=== PATIENT | female | born 1985 | race Caucasian/White ===

== ENCOUNTER 2016-12-14 13:50 | Emergency (ER) | payer SELFPAY ==
[2016-12-14 13:55] VITALS: BP 142/96; PULSE 92; TEMP 98.3; BMI 38.7
[2016-12-14] MEDS ORDERED: SODIUM CHLORIDE 0.9% 1000 ML INFUS.BAG IV ONE (14:31)
--- NOTE | 2016-12-14 14:41 | PDOC ---
History of Present Illness - General Chief Complaint: Nausea/Vomiting Stated Complaint: Nausea/Vomiting Time Seen by Provider: 12/14/16 14:14 History Source: Patient Exam Limitations: No Limitations - History of Present Illness Initial Comments: 12/14/16 14:36 The patient is a 31F with no PMH who presents with a headache and nausea. The patient states that she was woken up out of sleep at 6am with a headache that is unilateral, R frontal and temporal in location, which radiates to the top of her head and her neck. The pain is throbbing and is a 8/10. This has never happened before. She vomited 6 times since 6am. She has no trauma, no sick contacts and no recent travel. She has complaining of neck pain and photophobia. All: none Soc: none LMP: on it now - day 2 Past History - Past Medical History Allergies/Adverse Reactions: Allergies Allergy/AdvReac Type Severity Reaction Status Date / Time No Known Allergies Allergy Verified 12/14/16 13:55 Home Medications: Ambulatory Orders NK [No Known Home Medication] 12/14/16 Other medical history: NONE - Surgical History Cholecystectomy: Yes - Psycho/Social/Smoking Cessation Hx Anxiety: No Suicidal Ideation: No Smoking History: Never smoked Hx Alcohol Use: No Drug/Substance Use Hx: No Substance Use Type: None Review of Systems - Review of Systems Able to Perform ROS?: Yes Is the patient limited Icelandic proficient: No Constitutional: Yes: Weakness. No: Chills, Fever HEENTM: No: Blurred Vision, Double Vision, Nose Congestion, Throat Pain, Throat Swelling, Mouth Pain Respiratory: No: Cough, Shortness of Breath Cardiac (ROS): Yes: Lightheadedness ("room spinning dizziness"). No: Chest Pain , Palpitations ABD/GI: Yes: Nausea, Vomiting. No: Constipated, Diarrhea, Other (abd pain) : No: Dysuria, Discharge Neurological: Yes: Headache. No: Numbness, Tingling, Weakness *Physical Exam - Vital Signs Last Vital Signs Temp Pulse Resp BP Pulse Ox 98.3 F 92 H 20 142/96 99 12/14/16 13:52 12/14/16 13:52 12/14/16 13:52 12/14/16 13:52 12/14/16 13:52 - Physical Exam General Appearance: Yes: Nourished. No: Mild Distress HEENT: positive: Normal Voice, Hearing Grossly Normal. negative: TM Bulging, TM Dull, TM Erythema Neck: positive: Tender lateral, Tender midline Respiratory/Chest: positive: Lungs Clear, Normal Breath Sounds. negative: Chest Tender, Respiratory Distress, Accessory Muscle Use, Rapid RR, Crackles, Rales, Rhonchi, Stridor, Wheezing, Hyperresonant, Dullness Cardiovascular: positive: Regular Rhythm, Regular Rate, S1, S2. negative: Diastolic Murmur, Systolic Murmur Gastrointestinal/Abdominal: positive: Normal Bowel Sounds, Flat, Soft, Tenderness (to deep palpation in suprapubic region). negative: Tender Extremity: positive: Normal Inspection, Normal Range of Motion. negative: Coldness, Swelling, Calf Tenderness Integumentary: positive: Dry, Warm. negative: Cold, Clammy, Swelling Neurologic: positive: tariff expert II-XII NML intact, Fully Oriented, Alert, Normal Mood/ Affect, Motor Strength 5/5, Respond to painful stimul, Responsive. negative: Abnormal Cranial NS, EOM Palsy, Facial Droop, Numbness, Sensory Deficit, Finger to Nose, Confused, Disoriented, Depressed Affect ED Treatment Course - LABORATORY CBC & Chemistry Diagram: 12/14/16 14:55 12/14/16 14:55 Medical Decision Making - Medical Decision Making 12/14/16 14:42 The patient is a 31F with no PMH who presents with a headache and nausea since 6am. She has vomited and has a unilateral headache. I will order basic labs to assess the patient and treat her pain with IV tylenol and motrin. I will reassess the patient after her results return. 12/14/16 15:53 Patient states she's feeling better. She states that she gets this every time she gets her period. I will make a referral to neurology and d/c. *DC/Admit/Observation/Transfer Diagnosis at time of Disposition: Migraine headache Qualifiers: Migraine type: menstrual Status migrainosus presence: without status migrainosus Intractability: not intractable Qualified Code(s): G43.829 - Menstrual migraine, not intractable, without status migrainosus - Discharge Dispostion Disposition: HOME Condition at time of disposition: Improved Admit: No - Referrals Referrals: Tushar Vazquez MD [Staff Physician] - - Patient Instructions Printed Discharge Instructions: Migraine Headaches (Alternative Therapy), Migraine -- Adult, DI for Migraine Additional Instructions: Please return to the ER if symptoms persist, worsen, or if new symptoms arise. Please follow up with the neurologist, Dr. Vazquez, for your headaches. - Attestations Physician Attestion: 12/14/16 15:55 I, Dr. César Flor, attest that this document has been prepared under my direction and personally reviewed by me in its entirety. I further attest, that it accurately reflects all work, treatment, procedures and medical decision -making performed by me.
[2016-12-14] MEDS ORDERED: METOCLOPRAMIDE HCL INJECTION 10 MG/2 ML VIAL IVPB ONE (14:45)
[2016-12-14] MEDS ORDERED: ACETAMINOPHEN 1000 MG/100 ML VIAL (NON FORMULARY) IVPB ONE (14:45)
[2016-12-14 15:01] LABS: BASOPHIL 0.3 % (0-2.0); EOSINOPHIL 0.8 % (0-4.5); MCHC 34.6 g/dl (32.0-36.0); MEAN CELL VOLUME 86.7 fl (80-96); NEUTROPHILS 55.6 % (42.8-82.8); PLATELET COUNT 172 K/MM3 (134-434); RDW 14.7 % (11.6-15.6)
[2016-12-14] MEDS ORDERED: ACETAMINOPHEN INJECTION 100 ML IVPB ONE (15:08)
[2016-12-14] MEDS ORDERED: METOCLOPRAMIDE HCL INJECTION 10 MG/2 ML VIAL ONE (15:08)
[2016-12-14 15:17] LABS: ALBUMIN 3.4 g/dl (3.4-5.0); ANION GAP 9 (8-16); BILIRUBIN,TOTAL 0.4 mg/dL (0.2-1.0); CALCIUM 8.8 mg/dL (8.5-10.1); CO2 23 mmol/L (21-32); CREATININE 0.6 mg/dL (0.55-1.02); GLUCOSE,RANDOM 95 mg/dL (74-106); SGOT/AST 17 U/L (15-37); SGPT/ALT 22 U/L (12-78); TOT PROT 7.4 g/dl (6.4-8.2)
[2016-12-14 15:18] LABS: ALK PHOS 68 U/L (45-117)
[2016-12-14 15:37] LABS: URINE APPEARANCE TURBID; URINE BILIRUBIN NEGATIVE (NEGATIVE); URINE BLOOD 3+ (NEGATIVE); URINE COLOR RED; URINE GLUCOSE (UA) 1+ (NEGATIVE); URINE KETONE NEGATIVE (NEGATIVE); URINE LEUK ESTERASE NEGATIVE (NEGATIVE); URINE NITRITE NEGATIVE (NEGATIVE); URINE UROBILINOGEN NEGATIVE mg/dL (0.2-1.0)
[2016-12-14 15:41] LABS: URINE PROTEIN 2+ (NEGATIVE)
[2016-12-14 15:55] LABS: URINE RBC 4297 /hpf (0-3)
--- NOTE | 2016-12-14 16:09 | PDOC ---
Attending Attestation - Resident Resident Name: César Flor - ED Attending Attestation I have performed the following: I have examined & evaluated the patient, The case was reviewed & discussed with the resident, I agree w/resident's findings & plan, Exceptions are as noted - HPI HPI: 12/14/16 15:55 31yo F hx headaches (never worked up) p/w R sided headache that she woke up with this morning (did not wake her up). She reports the headache is throbbing, 7/10, located in the R restorationism. Pain radiates to the top of her head. Headache is a/w nausea and 6 episodes of NBNB emesis/spitting. +photophobia. She has had similar headaches in the past, especially right before or during her period. She currently has her period. She has not tried any treatments and has never seen a neurologist for her headaches. Denies any focal weakness or numbness, blurry vision. She reports the headache was not worse at onset but has gradually gotten worse since this morning. Denies fevers, chills, chest pain, shortness of breath, abdominal pain, lower extremity edema, dysuria, rashes, stiff neck. - Physicial Exam PE: 12/14/16 16:09 GENERAL: Awake, alert, and fully oriented, in no acute distress HEAD: No signs of trauma, no ttp to T restorationism EYES: PERRLA, EOMI, sclera anicteric, conjunctiva clear, 20/20 vision OU ENT: Auricles normal inspection, hearing grossly normal, nares patent, oropharynx clear without exudates. Moist mucosa NECK: Normal ROM, supple, no lymphadenopathy, JVD, or masses LUNGS: Breath sounds equal, clear to auscultation bilaterally. No wheezes, and no crackles HEART: Regular rate and rhythm, normal S1 and S2, no murmurs, rubs or gallops ABDOMEN: Soft, nontender, normoactive bowel sounds. No guarding, no rebound. No masses EXTREMITIES: Normal range of motion, no edema. No clubbing or cyanosis. No cords, erythema, or tenderness NEUROLOGICAL: Normal speech, cranial nerves intact, negative pronator drift, 5/ 5 strength in all 4 extremities, normal sensation to light touch in all 4 extremities, normal cerebellar exam, normal gait, normal reflexes and tone SKIN: Warm, Dry, normal turgor, no rashes or lesions noted. - Medical Decision Making 12/14/16 16:10 31-year-old female history of headaches presents with gradual onset right sided throbbing headache that she woke up with this morning. Exam within normal limits including full neurologic exam. Likely menstrual migraines versus general migraines. Tension headache also on differential, however distribution of headache is more consistent with migraine headache. I am not concerned for mass occupying lesion or SAH as headache has improved with medications and pt is neurologically intact. Also, headache was not worst at onset. I evaluated patient after IV Reglan and fluids and Tylenol and she reports her headache has resolved and requests to go home. I advised her to follow-up with a neurologist for workup of her headaches. -DC with number for neuro clinic I discussed the physical exam findings and final diagnoses with the patient in her primary language (Yoruba). I answered all of the patient's questions. The patient was satisfied with the care received and felt comfortable with the discharge plan and treatment plan. The patient will call their primary care physician within 24 hours to arrange follow-up and will return to the Emergency Department with any new, persistent or worsening symptoms.
== END 2016-12-14 15:58 | disposition home or self-care (01) ==
LOC: JER 13:50
PROC: 3E033NZ Introduction of Analgesics, Hypnotics, Sedatives into Peripheral Vein, Percutaneous Approach (ICD-10-PCS; principal; 2016-12-14)
PROC: 3E033GC Introduction of Other Therapeutic Substance into Peripheral Vein, Percutaneous Approach (ICD-10-PCS; 2016-12-14)
DX: G43.829 Menstrual migraine, not intractable, without status migrainosus (principal)
CPT/HCPCS: 36415; 80053; 81003; 81015; 84702; 85025; 99283-25

== ENCOUNTER 2018-05-18 16:34 | Emergency (ER) | payer OTHER ==
--- NOTE | 2018-05-18 16:39 | PDOC ---
Rapid Medical Evaluation Chief Complaint: Rash Time Seen by Provider: 05/18/18 16:38 Medical Evaluation: Allergies Allergy/AdvReac Type Severity Reaction Status Date / Time No Known Allergies Allergy Verified 05/18/18 16:38 05/18/18 16:39 I have performed a brief in-person evaluation of this patient. The patient presents with a chief complaint of:pruritic rash to hands/face Pertinent physical exam findings:Hives I have ordered the following:nothing The patient will proceed to the ED for further evaluation. Discharge Disposition - Diagnosis Rash and nonspecific skin eruption - Referrals - Patient Instructions - Post Discharge Activity
[2018-05-18 16:46] VITALS: BP 144/86; PULSE 89; TEMP 98.3; BMI 27.4
[2018-05-18] MEDS ORDERED: DEXAMETHASONE LIQUID 0.5 MG/5 ML 240 ML BULK BOTTLE PO ONE (16:57)
[2018-05-18] MEDS ORDERED: DEXAMETHASONE SOD PHOSPHATE 10 MG/1 ML VIAL ONE (16:59)
--- NOTE | 2018-05-18 17:02 | PDOC ---
History of Present Illness - General Chief Complaint: Rash Stated Complaint: RASH Time Seen by Provider: 05/18/18 16:38 - History of Present Illness Initial Comments: 05/18/18 17:00 33-year-old female without comorbidities presents for evaluation of rash times one day no systemic symptoms Past History - Past Medical History Allergies/Adverse Reactions: Allergies Allergy/AdvReac Type Severity Reaction Status Date / Time No Known Allergies Allergy Verified 05/18/18 16:38 Home Medications: Ambulatory Orders NK [No Known Home Medication] 12/14/16 COPD: No - Surgical History Cholecystectomy: Yes - Suicide/Smoking/Psychosocial Hx Smoking History: Never smoked Hx Alcohol Use: No Drug/Substance Use Hx: No Substance Use Type: None Review of Systems - Review of Systems Constitutional: No: Fever Integumentary: Yes: Pruritus, Rash *Physical Exam - Vital Signs Last Vital Signs Temp Pulse Resp BP Pulse Ox 98.3 F 89 18 144/86 100 05/18/18 16:38 05/18/18 16:38 05/18/18 16:38 05/18/18 16:38 05/18/18 16:38 - Physical Exam Comments: 05/18/18 17:00 HEAD: NC/AT EYES: Conjuntiva clear Ears: Canals and TM's normal NOSE: No d/c THROAT: Moist mucous membrances, oral pharanx clear, uvula midline NECK: Supple without adenopathy CARDIAC: S1 S2 LUNGS: CTA Full and Equal breath sounds ABDOMEN: Soft NT ND MS: Full ROM in all joints without edema NEUROLOGIC: No gross sensory or motor deficits, NVID SKIN: Normal color and temperature there is a raised wheals on the lateral aspect of the right and left hands as well as left ankle Moderate Sedation - Procedure Monitoring Vital Signs: Procedure Monitoring Vital Signs Temperature 98.3 F 05/18/18 16:38 Pulse Rate 89 05/18/18 16:38 Respiratory Rate 18 05/18/18 16:38 Blood Pressure 144/86 05/18/18 16:38 O2 Sat by Pulse Oximetry (%) 100 05/18/18 16:38 *DC/Admit/Observation/Transfer Diagnosis at time of Disposition: Rash and nonspecific skin eruption, Allergic reaction - Discharge Dispostion Disposition: HOME Condition at time of disposition: Stable Decision to Admit order: No - Referrals Referrals: Joya Soto [Staff Physician] - Corbin Soto MD [Staff Physician] - - Patient Instructions Printed Discharge Instructions: Diaper Rash Additional Instructions: Return to the emergency room should symptoms worsen or go unresolved. He may take Benadryl as directed for itching. Follow-up with primary care physician once 2 days for further evaluation and treatment options. - Post Discharge Activity
== END 2018-05-18 17:06 | disposition home or self-care (01) ==
LOC: JERFT 16:34
DX: T78.40XA Allergy, unspecified, initial encounter (principal); X58.XXXA Exposure to other specified factors, initial encounter
CPT/HCPCS: 99281-25

== ENCOUNTER 2019-03-25 11:54 | Emergency (ER) | payer OTHER ==
[2019-03-25 12:00] VITALS: BP 132/84; PULSE 87; TEMP 98; BMI 35.4
[2019-03-25] MEDS ORDERED: ONDANSETRON 4 MG/2 ML VIAL IVPUSH ONE (12:44)
[2019-03-25] MEDS ORDERED: ACETAMINOPHEN 1000 MG/100 ML VIAL (NON FORMULARY) IVPB ONE (12:44)
[2019-03-25] MEDS ORDERED: FAMOTIDINE 20 MG/50 ML IVPB 20 MG/50 ML MG IVPB ONE ×2 (12:44→12:48)
[2019-03-25] MEDS ORDERED: SODIUM CHLORIDE 1,000 ML IV STA (12:44)
[2019-03-25] MEDS ORDERED: ONDANSETRON 4 MG/2 ML VIAL ONE (12:48)
[2019-03-25] MEDS ORDERED: ACETAMINOPHEN INJECTION 100 ML IVPB ONE (12:48)
[2019-03-25 13:21] LABS: BASO % 0.8 % (0-2.0); EOS % 1.6 % (0-4.5); HEMOGLOBIN 11.8 GM/dL (10.7-15.3); LYMPH % 43.5 % (8-40); MCH 27.3 pg (25.7-33.7); MCHC 33.8 g/dl (32.0-36.0); MEAN CELL VOLUME 80.9 fl (80-96); MEAN PLT VOLUME 8.2 fl (7.5-11.1); MONO % 9.4 % (3.8-10.2); NEUT % 44.7 % (42.8-82.8); PLATELET COUNT 227 K/MM3 (134-434); RBC 4.33 M/mm3 (3.60-5.2); RDW 15.3 % (11.6-15.6); WHITE BLOOD COUNT 3.7 K/mm3 (4.0-10.0)
--- NOTE | 2019-03-25 13:31 | PDOC ---
Attending Attestation - Resident Resident Name: Jeff Ho - ED Attending Attestation I have performed the following: I have examined & evaluated the patient, The case was reviewed & discussed with the resident, I agree w/resident's findings & plan - HPI HPI: 03/25/19 13:32 33y/o F h/o lap rené p/w 3d epigastric pain with nausea. Pt reports constant epigastric pain, localized without heartburn or melena. no f/c, no change with meals. no known history of gastritis/PUD, never had EGD. nbnb emesis today, nothing prior. uses nsaids for menses and WELLS, not weekly. denies etoh use. - Physicial Exam PE: 03/25/19 13:36 vss, pending alert, nad, ambulating comfortably perrl, eomi. no jaundice/pallor op clear, mmm s1s2 rrr, ctab soft/nd. epigastric ttp without guarding/rebound. no RUQ ttp, no cvat. no rash, no edema - Medical Decision Making 03/25/19 13:37 33y/o F with localized epigastric pain for 3d and benign but localized exam, most consistent with dyspepsia/gastritis without bleeding. h/o lap rené. vss. labs trial of antacid no indication for emergent imaging reassess and dispo with GI cocktail and GI f/u
--- NOTE | 2019-03-25 13:46 | PDOC ---
History of Present Illness - General Chief Complaint: Pain Stated Complaint: ABD PAIN/VOMITING/DIZZINESS Time Seen by Provider: 03/25/19 12:34 - History of Present Illness Initial Comments: 03/25/19 14:12 33f with pmh of gallbladder "laser surgery" presents with 3 days of nonradiating epigastric pain, with two episodes of vomiting today, worsening in intensity. Pain is worse with food, 5/10. Denies heartburn, fever, chills, nausea, diarrhea or constipation. No dysuria. No one else sick at home. Past History - Past Medical History Allergies/Adverse Reactions: Allergies Allergy/AdvReac Type Severity Reaction Status Date / Time No Known Allergies Allergy Verified 03/25/19 12:00 Home Medications: Ambulatory Orders NK [No Known Home Medication] 12/14/16 COPD: No - Surgical History Cholecystectomy: Yes - Psycho Social/Smoking Cessation Hx Smoking History: Never smoked Hx Alcohol Use: No Drug/Substance Use Hx: No Substance Use Type: None Review of Systems - Review of Systems Able to Perform ROS?: Yes Is the patient limited Sinhala proficient: No Constitutional: No: Symptoms Reported HEENTM: No: Symptoms Reported Respiratory: No: Symptoms reported Cardiac (ROS): No: Symptoms Reported ABD/GI: Yes: See HPI : No: Symptoms Reported Musculoskeletal: No: Symptoms Reported All Other Systems: Reviewed and Negative *Physical Exam - Vital Signs Last Vital Signs Temp Pulse Resp BP Pulse Ox 98 F 87 18 132/84 99 03/25/19 11:57 03/25/19 11:57 03/25/19 11:57 03/25/19 11:57 03/25/19 11:57 - Physical Exam General Appearance: Yes: Nourished, Appropriately Dressed. No: Apparent Distress HEENT: positive: EOMI, MANOLO, Normal ENT Inspection Respiratory/Chest: positive: Lungs Clear, Normal Breath Sounds. negative: Chest Tender, Respiratory Distress Cardiovascular: positive: Regular Rhythm, Regular Rate, S1, S2 Gastrointestinal/Abdominal: positive: Normal Bowel Sounds, Tender (epigastric), Flat, Soft Musculoskeletal: positive: Normal Inspection. negative: CVA Tenderness Extremity: positive: Normal Capillary Refill, Normal Inspection, Normal Range of Motion Integumentary: positive: Normal Color, Dry, Warm Neurologic: positive: Fully Oriented, Alert, Normal Mood/Affect ED Treatment Course - LABORATORY CBC & Chemistry Diagram: 03/25/19 13:00 03/25/19 14:19 - ADDITIONAL ORDERS Additional order review: 03/25/19 13:00 RBC 4.33 MCV 80.9 MCHC 33.8 RDW 15.3 MPV 8.2 Neutrophils % 44.7 Lymphocytes % 43.5 H Monocytes % 9.4 Eosinophils % 1.6 D Basophils % 0.8 - Medications Given in the ED: ED Medications Discontinued Medications Generic Name Dose Route Start Last Admin Trade Name Gabriela PRN Reason Stop Dose Admin Acetaminophen 1,000 mg 03/25/19 12:44 03/25/19 13:09 Ofirmev Injection - IVPB 03/25/19 12:45 1,000 mg ONCE ONE Administration Famotidine/Sodium Chloride 20 mg in 50 mls @ 100 mls/hr 03/25/19 12:44 13:25 Pepcid 20 Mg Premixed Ivpb - IVPB 03/25/19 13:13 100 mls/hr ONCE ONE Administration Sodium Chloride 1,000 mls @ 1,000 mls/hr 03/25/19 12:44 03/25/19 13:09 Normal Saline - IV 03/25/19 13:43 1,000 mls/hr ASDIR STA Administration Ondansetron HCl 4 mg 03/25/19 12:44 03/25/19 13:15 Zofran Injection IVPUSH 03/25/19 12:45 4 mg ONCE ONE Administration Medical Decision Making - Medical Decision Making 03/25/19 14:43 33f with 3 days of epigastric pain and vomiting today. Gastritis vs ulcer vs gastroentritis Patient feels better after antacids and tolerates PO cmp hemolyzed, pending new set as well as lipase.. Discharge - Discharge Information Problems reviewed: Yes Clinical Impression/Diagnosis: Epigastric pain - Admission No - Follow up/Referral - Patient Discharge Instructions Patient Printed Discharge Instructions: DI for Epigastric Pain Additional Instructions: Come back to the emergency department for any new, worsening or concerning symptom. Follow up with your primary care physician within the week. - Post Discharge Activity
[2019-03-25 15:12] LABS: EPI CELLS 31.7 /HPF (0-5/HPF); HYALINE CASTS 114 /lpf (0-8); URINE APPEARANCE TURBID; URINE BACTERIA 295.1 /hpf (NEGATIVE); URINE BILIRUBIN NEGATIVE (NEGATIVE); URINE COLOR YELLOW; URINE GLUCOSE (UA) NEGATIVE (NEGATIVE); URINE KETONE NEGATIVE (NEGATIVE); URINE LEUK ESTERASE NEGATIVE (NEGATIVE); URINE NITRITE NEGATIVE (NEGATIVE); URINE PROTEIN 1+ (NEGATIVE); URINE RBC 2 /hpf (0-4); URINE UROBILINOGEN 0.2 mg/dL (0.2-1.0)
[2019-03-25 15:20] LABS: ALBUMIN 3.5 g/dl (3.4-5.0); BILIRUBIN,TOTAL 0.3 mg/dL (0.2-1); BLOOD UREA NITROGEN 10.8 mg/dL (7-18); CALCIUM 8.1 mg/dL (8.5-10.1); CREATININE 0.6 mg/dL (0.55-1.3); TOT PROT 7.2 g/dl (6.4-8.2)
== END 2019-03-25 15:42 | disposition home or self-care (01) ==
LOC: JER 11:54
PROC: 3E033GC Introduction of Other Therapeutic Substance into Peripheral Vein, Percutaneous Approach (ICD-10-PCS; principal; 2019-03-25)
PROC: 3E033GC Introduction of Other Therapeutic Substance into Peripheral Vein, Percutaneous Approach (ICD-10-PCS; 2019-03-25)
PROC: 3E033NZ Introduction of Analgesics, Hypnotics, Sedatives into Peripheral Vein, Percutaneous Approach (ICD-10-PCS; 2019-03-25)
DX: R10.13 Epigastric pain (principal); Z90.49 Acquired absence of other specified parts of digestive tract
CPT/HCPCS: 36415; 80053; 81003; 83690; 84703; 85025; 87086; 99282-25; J0131; J7030

== ENCOUNTER 2023-07-06 20:29 | Emergency (ER) | payer OTHER ==
[2023-07-06 20:35] VITALS: BMI 23.5
[2023-07-06] MEDS ORDERED: FAMOTIDINE 20 MG/50 ML IVPB 20 MG/50 ML MG IVPB ONE (21:44)
[2023-07-06] MEDS ORDERED: ONDANSETRON 4 MG/2 ML VIAL ONE (21:44)
[2023-07-06] MEDS: FAMOTIDINE 20 MG/50 ML IVPB 20 MG/50 ML MG IVPB ONE (22:09)
[2023-07-06] MEDS: LACTATED RINGERS SOLUTION 1000 ML INFUS.BAG IV ONE (22:10)
[2023-07-06] MEDS: ONDANSETRON 4 MG/2 ML VIAL IVPUSH ONE (22:10)
[2023-07-06] MEDS: ACETAMINOPHEN 1000 MG/100 ML BAG IVPB ONE (22:10)
[2023-07-06] MEDS: MAG HYDROX/AL HYDROX/SIMETH 30 ML UNIT-DOSE CUP PO ONE (22:11)
[2023-07-06 22:28] LABS: BASO % 0.3 % (0-2.0); EOS % 0.1 % (0-4.5); HEMOGLOBIN 15.4 GM/dL (10.7-15.3); LYMPH % 14.9 % (8-40); MCH 27.3 pg (25.7-33.7); MCHC 34.1 g/dl (32.0-36.0); NEUT % 81.7 % (42.8-82.8); PLATELET COUNT 366 10^3/uL (134-434); RBC 5.63 M/mm3 (3.60-5.2); WHITE BLOOD COUNT 10.6 K/mm3 (4.0-10.0)
[2023-07-06 22:42] LABS: CHLORIDE 109 mmol/L (98-107); SODIUM 137 mmol/L (136-145)
[2023-07-06 22:44] LABS: CALCIUM 9.2 mg/dL (8.5-10.1); CO2 19 mmol/L (21-32)
[2023-07-06 22:45] LABS: ALBUMIN 3.1 g/dl (3.4-5.0); BLOOD UREA NITROGEN 9.9 mg/dL (7-18); GLUCOSE,RANDOM 135 mg/dL (74-106)
[2023-07-06 22:47] LABS: CREATININE 0.8 mg/dL (0.55-1.3); SGPT/ALT 25 U/L (13-61)
[2023-07-06 22:48] LABS: SGOT/AST 53 U/L (15-37)
[2023-07-06 22:49] LABS: BILIRUBIN,TOTAL 0.6 mg/dL (0.2-1); TOT PROT 7.9 g/dl (6.4-8.2)
[2023-07-06 22:50] LABS: ALK PHOS 72 U/L (45-117)
[2023-07-06 22:52] LABS: ANION GAP 8 mmol/L (4-13); POTASSIUM 6.4 mmol/L (3.5-5.1)
[2023-07-07] MEDS ORDERED: KETOROLAC TROMETHAMINE 15 MG/ML VIAL ONE (00:04)
[2023-07-07] MEDS ORDERED: MAG HYDROX/AL HYDROX/SIMETH 30 ML UNIT-DOSE CUP ONE (00:04)
[2023-07-07] MEDS: MAG HYDROX/AL HYDROX/SIMETH 30 ML UNIT-DOSE CUP PO ONE (00:12)
[2023-07-07] MEDS: KETOROLAC TROMETHAMINE 30 MG/1 ML VIAL IVPUSH ONE (00:12)
[2023-07-07] MEDS: KETOROLAC TROMETHAMINE 15 MG/ML VIAL IM ONE (00:14)
[2023-07-07 00:35] LABS: CREATININE 0.7 mg/dL (0.55-1.3)
[2023-07-07 01:22] VITALS: BP 132/76; PULSE 90; RESP 18; TEMP 98.3
== END 2023-07-07 01:22 | disposition home or self-care (01) ==
LOC: JER 20:29
PROC: 3E033GC Introduction of Other Therapeutic Substance into Peripheral Vein, Percutaneous Approach (ICD-10-PCS; principal; 2023-07-06)
PROC: 3E033NZ Introduction of Analgesics, Hypnotics, Sedatives into Peripheral Vein, Percutaneous Approach (ICD-10-PCS; 2023-07-06)
PROC: 3E0333Z Introduction of Anti-inflammatory into Peripheral Vein, Percutaneous Approach (ICD-10-PCS; 2023-07-06)
PROC: 3E033GC Introduction of Other Therapeutic Substance into Peripheral Vein, Percutaneous Approach (ICD-10-PCS; 2023-07-06)
DX: R10.84 Generalized abdominal pain (principal); R10.13 Epigastric pain; R11.10 Vomiting, unspecified; Z20.822 Contact with and (suspected) exposure to COVID-19
CPT/HCPCS: 0241U-QW; 36415; 80048; 80053; 83690; 83735; 84484; 84703; 85025; 93005; 93010; 99284-25; J0131